=== PATIENT | male | born 1970 | race African-American/Black ===

== ENCOUNTER 2017-09-20 21:27 | Inpatient (IN) | payer MEDICAID ==
[~2017-09-20] VITALS: Ht 188 cm; Wt 70.3 kg
[2017-09-21] VITALS (7 sets, daily range): BP systolic 95–132; BP diastolic 60–76
[2017-09-21] MEDS ORDERED: ASPI-605 PO (00:11)
[2017-09-21] MEDS ORDERED: FURO40TA5 PO (00:11)
[2017-09-21] MEDS ORDERED: EZET10TA PO (00:11)
[2017-09-21] MEDS ORDERED: ROSU20TA PO (00:11)
[2017-09-21] MEDS ORDERED: DIGO125T PO (00:11)
--- NOTE | 2017-09-21 00:15 | NUR ---
RN NOTES ADMITTED A 47 YEARS OLD MALE PATIENT DIRECT FROM [facility] UNDER DR. KAPOOR. AOX3 ABLE TO MAKE KNOWN NEEDS. DENIES PAIN AT THIS TIME. PATIENT HAD A HISTORY OF [place] ST[place] [facility] [place]AC[place] AT [facility]. DYSPNEA, COUGH. SYNCOPE, PULMONARY HTN AND HYPERLIPIDEMIA. ALLERGIC TO PENICILLIN. TELE MONITOR PLACED REVEALS SR HR 82. DENIES CHEST PAIN. IV SITE ON RAC G 20 INTACT AND PATENT. SKIN INTACT. AFEBRILE. VS TAKEN TEMP 98. RESP 17 PULSE 79 BP 110/69 SATING 98% IN RA. PT IS AMBULATORY CONTINENT IN BOWEL AND BLADDER. SEEN AND EXAMINED BY DR. KAPOOR AND EXPLAINED TO PATIENT REGARDING PLAN OF CARE. KEPT PT CLEAN AND DRY INSTRUCTED TO USED CALL LIGHT WHEN NEED ASSISTANCE. BED KEPT LOCKED. WILL CONTINUE TO MONITOR.
[2017-09-21] MEDS: ASPIRIN EC 81 MG TABLET.DR PO SCH ×2 (01:00→08:53)
[2017-09-21] MEDS ORDERED: ZOLPIDEM TARTRATE 5 MG TABLET PO PRN (01:00)
[2017-09-21] MEDS ORDERED: DIGOXIN 0.125 MG TABLET PO SCH (01:00)
[2017-09-21] MEDS ORDERED: ONDANSETRON HCL/PF 4 MG/2 ML VIAL IVP PRN (01:00)
[2017-09-21] MEDS ORDERED: Z GUARD REMEDY 2 OZ OINT TP PRN (01:00)
[2017-09-21] MEDS ORDERED: MAG HYDROX/AL HYDROX/SIMETH 30 ML UDC PO PRN (01:00)
[2017-09-21 01:32] LABS: BASOPHILS % (AUTO) 0.6 % (0.0-2.0); EOSINOPHILS # (AUTO) 0.1 /CMM (0.0-0.7); EOSINOPHILS % (AUTO) 1.5 % (0.0-6.0); HEMATOCRIT 43 % (39-51); HEMOGLOBIN 14.1 g/dL (13.5-17.5); LYMPHOCYTES # (AUTO) 1.2 /CMM (0.8-4.8); LYMPHOCYTES % (AUTO) 16.8 % (20.0-44.0); MEAN CORPUSCULAR HEMOGLOBIN 33 PG (26.0-33.0); MEAN CORPUSCULAR HGB CONC 33 g/dl (31.0-36.0); MEAN CORPUSCULAR VOLUME 102 fL (80-96); MONOCYTES # (AUTO) 0.7 /CMM (0.1-1.30); MONOCYTES % (AUTO) 9.8 % (2.0-12.0); NEUTROPHILS # (AUTO) 5.1 /CMM (1.8-8.9); NEUTROPHILS % (AUTO) 71.3 % (43.0-81.0); PLATELET COUNT (AUTO) 169 /CMM (150-450); RED BLOOD CELL COUNT(AUTO) 4.21 MIL/uL (4.5-6.0); WHITE BLOOD COUNT (AUTO) 7.1 K/uL (4.3-11.0)
[2017-09-21 01:52] LABS: TROPONIN I 0.02 ng/mL (0.00-0.056)
[2017-09-21 01:58] LABS: ALBUMIN 3.6 g/dL (3.4-5.0); BILIRUBIN,TOTAL 3.9 mg/dL (0.2-1.0); CALCIUM, SERUM 9.4 mg/dL (8.5-10.1); CREATININE 2.1 mg/dL (0.6-1.3); POTASSIUM 4.5 mmol/L (3.5-5.1); TOTAL PROTEIN, SERUM 7.5 g/dL (6.4-8.2)
--- NOTE | 2017-09-21 06:55 | NUR ---
RN NOTES PATIENT ASLEEP AT THIS TIME. NO SIGNIFICANT CHANGE OF CONDITION NOTED. ALL NEEDS ATTENDED. DENIES PAIN NOR CHEST THROUGHOUT THE SHIFT. REMAINED SINUS RHYTHM HR 86. AMBULATE. CONTINENT KEPT PT CLEAN AND COMFORTABLE IN BED. WILL ENDORSED CONTINUITY OF CARE TO AM NURSE.
--- NOTE | 2017-09-21 07:44 | NUR ---
RN OPENING NOTES RECEIVED PT ASLEEP IN BED, EASILY AROUSABLE. A/O X3 AND VERBALLY RESPONSIVE, NO C/O PAIN OR ANY DISCOMFORTS AT THIS TIME. ON TELE MONITORING WITH CURRENT READING OF SR AND HR 74, NO C/O CHEST PAIN VOICED. IV ACCESS ON LAC G #20 INTACT AND PATENT, HL ONLY CALL LIGHT. BED IN LOW/ LOCKED POSITION. BEDSIDE TABLE AND CALL LIGHT WITHIN REACH. WILL CONTINUE TO MONITOR PT ACCORDINGLY
[2017-09-21] MEDS: EZETIMIBE 10 MG TABLET PO SCH (08:53)
--- NOTE | 2017-09-21 08:58 | NUR ---
RN NOTES PT SEEN AND EVALUATED BY DR VILLA WITH ORDER TO DO CHEST X-RAY AND ECHO TODAY. WILL CONTINUE TO MONITOR
[2017-09-21] MEDS: BUMETANIDE (1 MG) 1 MG TABLET PO SCH (11:14)
[2017-09-21] MEDS: DIGOXIN 0.125 MG TABLET PO SCH (12:36)
[2017-09-21] MEDS: ACETAMINOPHEN 325 MG TABLET PO PRN ×2 (15:12→21:17)
--- NOTE | 2017-09-21 18:39 | NUR ---
RN CLOSING NOTES PATIENT RESTING IN BED AT MODERATE HIGH BACKREST. A/O X3, SAME VERBALLY RESPONSIVE. NO SIGNIFICANT CHANGES NOTED THROUGHOUT THE DAY. ON TELE MONITORING WITH CURRENT READING OF SR AND HR 86, NO C/O CHEST PAIN VOICED DURING THE DAY. IV ACCESS ON LAC G #20 INTACT AND PATENT, HL ONLY. KEPT BED IN LOW/ LOCKED POSITION. BEDSIDE TABLE AND CALL LIGHT WITHIN REACH. ALL DUE MEDS GIVEN ORDERED AND TOLERATED WELL. WILL ENDORSED TO ROAD GANG SUPERVISOR NURSE FOR YFN.
--- NOTE | 2017-09-21 19:30 | NUR ---
CREDIT SUPPORT SPECIALIST OPENING NOTES: PATIENT IN BED, AOX4, ON ROOM AIR, BREATHING EVEN AND UNLABORED. BREATH SOUNDS CLEAR TO AUSCULTATION. APPEARS CALM AND IN NO DISTRESS, DENIES PAIN, BUT DOES STATE THAT HE WANTS TO SLEEP. ON TELE MONITORING: SINUS RHYTHM AT RATE OF 70S. PIV OVER LAC G 20 INTACT AND PATENT TO FLUSH. PROVIDED FOR COMFORT AND SAFETY. BED IN LOWEST AND LOCKED POSITION, SIDERAILS UP X2. WILL CONT TO MONITOR.
--- NOTE | 2017-09-21 21:20 | NUR ---
RN NOTES: PATIENT ASKING FOR SLEEP MEDICATION, HOWEVER, PER MD NOTES, PT HAD A SYNCOPAL EPISODE (QUESTIONABLE) FOLLOWING AMBIEN AND BENADRYL. EXPLAINED THIS TO PATIENT, WHO VERBALIZED AGREEMENT, AND ASKED FOR TYLENOL INSTEAD. PATIENT EDUCATION GIVEN, TYLENOL 650 MG PO ADMINISTERED.
[2017-09-21] MEDS ORDERED: ATORVASTATIN 40 MG TABLET PO SCH (22:00)
[2017-09-22] VITALS: BP_SYST 100; BP_SYST 151; BP_DIAS 71; BP_DIAS 72
[2017-09-22 04:00] VITALS: BP 107/72
--- NOTE | 2017-09-22 06:35 | NUR ---
KNOT PICKER CLOTH CLOSING NOTES: PATIENT IN BED, AOX4, ON ROOM AIR, BREATHING EVEN AND UNLABORED. APPEARS CALM AND IN NO DISTRESS, DENIES PAIN, BUT DOES COMPLAIN THAT HE FEELS TIRED. NO ACUTE CHANGE IN CONDITION NOTED THROUGH SHIFT. ON TELE MONITORING: SR AT RATE OF 80S. PIV OVER LAC G 20 INTACT AND PATENT TO FLUSH. DUE MEDS GIVEN. PROVIDED FOR COMFORT AND SAFETY. BED IN LOWEST AND LOCKED POSITION, SIDERAILS UPX2. WILL ENDORSE TO AM RN FOR YFN.
[2017-09-22 07:30] LABS: BASOPHILS % (AUTO) 0.3 % (0.0-2.0); EOSINOPHILS # (AUTO) 0.3 /CMM (0.0-0.7); EOSINOPHILS % (AUTO) 3.6 % (0.0-6.0); HEMATOCRIT 42 % (39-51); HEMOGLOBIN 13.7 g/dL (13.5-17.5); LYMPHOCYTES # (AUTO) 1.2 /CMM (0.8-4.8); LYMPHOCYTES % (AUTO) 15.9 % (20.0-44.0); MEAN CORPUSCULAR HEMOGLOBIN 34 PG (26.0-33.0); MEAN CORPUSCULAR HGB CONC 33 g/dl (31.0-36.0); MEAN CORPUSCULAR VOLUME 103 fL (80-96); MONOCYTES # (AUTO) 0.8 /CMM (0.1-1.30); MONOCYTES % (AUTO) 11.3 % (2.0-12.0); NEUTROPHILS # (AUTO) 5.1 /CMM (1.8-8.9); NEUTROPHILS % (AUTO) 68.9 % (43.0-81.0); PLATELET COUNT (AUTO) 139 /CMM (150-450); RDW COEFFICIENT OF VARIATION 15.6 (11.5-15.0); RED BLOOD CELL COUNT(AUTO) 4.06 MIL/uL (4.5-6.0); WHITE BLOOD COUNT (AUTO) 7.5 K/uL (4.3-11.0)
[2017-09-22 07:56] LABS: ALBUMIN 3.1 g/dL (3.4-5.0); BILIRUBIN,TOTAL 3.4 mg/dL (0.2-1.0); CALCIUM, SERUM 8.7 mg/dL (8.5-10.1); CREATININE 1.8 mg/dL (0.6-1.3); PHOSPHORUS 3.7 mg/dL (2.5-4.9); POTASSIUM 4.3 mmol/L (3.5-5.1); TOTAL PROTEIN, SERUM 6.8 g/dL (6.4-8.2)
[2017-09-22 08:00] VITALS: BP 101/66
--- NOTE | 2017-09-22 08:00 | NUR ---
TELE1/RN AM SHIFT INITIAL NOTES RECEIVED PT AWAKE IN BED, PT A/O X 4, NO ACUTE CHANGE OF CONDITION, DENIES CHEST PAIN. ON ROOM AIR SATURATING @ 99%, LUNG SOUNDS CLEAR. ON TELE WITH SINUS RHYTHM, HR 77. IV SITE FLUSHED, PATENT WITH NO S/S OF INFECTION, SL. PT IS COMFORTABLE AT THIS TIME. SCHEDULED AM MEDS TO BE GIVEN. CL WITHIN REACHED AND SAFETY MAINTAINED. ON GOING MONITORING.
[2017-09-22] MEDS: BUMETANIDE (1 MG) 1 MG TABLET PO SCH (09:03)
[2017-09-22] MEDS: ASPIRIN EC 81 MG TABLET.DR PO SCH (09:03)
[2017-09-22] MEDS: EZETIMIBE 10 MG TABLET PO SCH (09:03)
[2017-09-22 12:00] VITALS: BP 99/69
[2017-09-22] MEDS: DIGOXIN 0.125 MG TABLET PO SCH (13:18)
--- NOTE | 2017-09-22 14:10 | NUR ---
MS1/BILINGUAL TRAINER - HOME DISCHARGE INSTRUCTIONS GIVEN TO PT, VERBALIZED UNDERSTANDING. IV SITE REMOVED, PRESSURE DRESSING APPLIED, NO S/S OF INFECTION. DISCHARGE DOCUMENTS GIVEN TO PT, INCLUDING PRESCRIPTION. ID BANDS REMOVED. PERSONAL BELONGINGS RETURNED, INVENTORY LOG SIGNED OFF. PT LEFT WALKING OUT OF MS1 UNIT WITH STEADY GAIT, ACCOMPANIED BY PT'S MOTHER TO AN AWAITING PRIVATE CAR.
== END 2017-09-22 14:10 | disposition home or self-care (01) | DRG 194 ==
LOC: TELE1 23:06 → MEDSG1 09-22 10:06
PROVIDERS: ADMIT Internal Medicine; ATTEND Internal Medicine
DX: I50.23 Acute on chronic systolic (congestive) heart failure (principal); N17.0 Acute kidney failure with tubular necrosis; I25.5 Ischemic cardiomyopathy; Z95.2 Presence of prosthetic heart valve; I25.10 Atherosclerotic heart disease of native coronary artery without angina pectoris; E78.5 Hyperlipidemia, unspecified; I27.20 Pulmonary hypertension, unspecified; I25.2 Old myocardial infarction; Z82.49 Family history of ischemic heart disease and other diseases of the circulatory system; Z79.899 Other long term (current) drug therapy; Z79.82 Long term (current) use of aspirin; I13.0 Hypertensive heart and chronic kidney disease with heart failure and stage 1 through stage 4 chronic kidney disease, or unspecified chronic kidney disease; N18.9 Chronic kidney disease, unspecified
CPT/HCPCS: 36415; 71010-TC; 80048-TC; 80053-TC; 80061-TC; 80162-TC; 83735-TC; 83880; 84100-TC; 84484-TC; 85025-TC; 87070-TC; 87081-TC; 93307-TC; Z7610